=== PATIENT | female | born 1995 | race Caucasian/White ===

== ENCOUNTER 2022-01-08 16:57 | Inpatient (IN) | payer OTHER, SELFPAY ==
[2022-01-08] VITALS (10 sets, daily range): BP systolic 97–137; BP diastolic 66–100; PULSE 67–104; BMI 27.5
--- NOTE | 2022-01-08 16:57 | LDADM ---
This patient, Toñito Herrera, was admitted to Labor/Delivery/Recovery 109 on 01/08/22 at 16:57. Plans for labor, pain management and were discussed with patient. Patient/family oriented to hospital policies and general routines including ID bracelet, bed and alarms, visiting hours, pain management, procedures, bathroom and other care routines, personal items, smoking policy, room service/diet and guest tray routines, infant security routines, and visiting hours. Patient/Family are encouraged to report perceived risks to care and to ask questions if they do not understand what they are told or what they should do. See OBIX for further documentation.
--- OUTSIDE RECORDS SUMMARY | 2022-01-08 17:02 | XMS_ITS | Encounter Summary ---
:1995 Author Reason for Visit OB visit OB [id number] EDC 01/21/2022 LMP 04/16/2021 Assessment and Plan Assessment Note Patient is _34__weeks . Discuss ed plan. 1. Routine care Discussion Note: None recorded.Patient educational handouts: No information available. Plan of Care Reminders Provider Appointments Ob Routine 01/11/2022 9:45AM Lizet donovan CNM ? Ob Routine 01/18/2022 9:30AM Lizet donovan CNM Lab None recorded. ? ? Referral None recorded. ? ? Procedures None recorded. ? ? Surgeries None recorded. ? ? Imaging None recorded. ? ? Medications Name Start Date ? ? ? Unisom (doxylamine) ? Medications Administered None recorded. Vitals Height Weight BMI Blood Pressure 5 ft 8 in 164 lbs 24.9 kg/m2 120/80 mm[Hg] Results Lab Results None recorded. Allergies Code Code System Name Reaction Severity Onset Penicillin Hives Mild to Moderate ? Problems Name Status Onset Date Source ? Active 07/11/2021 ? Procedures Date Name Performed by ? 09/18/2012 Extraction of [place] Tooth Information n ot available Vaccine List None recorded. Social History Tobacco Smoking Status Never Smoker Do you have difficulty walking or climbing stairs? N What type of diet are you following? REGULAR What is the highest grade or level of school you have comple diogenes or [id number] the highest degree you have received? Are you able to walk? YESWOREST
--- OUTSIDE RECORDS SUMMARY | 2022-01-08 17:02 | XMS_ITS | Encounter Summary ---
:1995 Author Reason for Visit OB visit OB [id number] EDC 01/21/2022 LMP 04/16/2021 Assessment and Plan Assessment Note Patient is __37_weeks . Discuss ed plan. 1. Routine care [...] BMI Blood Pressure 5 ft 8 in 165 lbs 25.1 kg/m2 132/88 mm[Hg] Results Lab Results None recorded. Allergies Code Code System Name Reaction Severity Onset Penicillin Hives Mild to Moderate ? Problems Name Status Onset Date Source ? Active 07/11/2021 ? Procedures Date Name Performed by ? 09/18/2012 Extraction of [place] Tooth Information n ot available Vaccine List None recorded. Social History Tobacco Smoking Status Never Smoker Do you have difficulty walking or climbing stairs? N What type of diet are you following? REGULAR What is the highest grade or level of school you have comple diogenes or [id number] the highest degree you have received? Are you able to walk? YESWOREST
--- OUTSIDE RECORDS SUMMARY | 2022-01-08 17:02 | XMS_ITS | Encounter Summary ---
:1995 Author Reason for Visit OB visit Assessment and Plan Assessment Note Patient is __32_weeks . Discuss ed plan. 1. Routine care [...] BMI Blood Pressure 5 ft 8 in 161 lbs 24.5 kg/m2 138/86 mm[Hg] Results Lab Results None recorded. Allergies Code Code System Name Reaction Severity Onset Penicillin Hives Mild to Moderate ? Problems Name Status Onset Date Source ? Active 07/11/2021 ? Procedures Date Name Performed by ? 09/18/2012 Extraction of [place] Tooth Information n ot available Vaccine List None recorded. Social History Tobacco Smoking Status Never Smoker Do you have difficulty walking or climbing stairs? N What type of diet are you following? REGULAR What is the highest grade or level of school you have comple diogenes or [id number] the highest degree you have received? Are you able to walk? YESWOREST Are you able to care for yourself? Y
--- OUTSIDE RECORDS SUMMARY | 2022-01-08 17:02 | XMS_ITS | Encounter Summary ---
:1995 Author Reason for Visit OB visit OB [id number] EDC 01/21/2022 LMP 04/16/2021 Assessment and Plan Assessment Note Patient is _36__weeks . Discuss ed plan. 1. Routine care [...] ft 8 in 164 lbs 24.9 kg/m2 127/88 mm[Hg] Results Lab Results None recorded. Allergies Code Code System Name Reaction Severity Onset Penicillin Hives Mild to Moderate ? Problems Name Status Onset Date Source ? Active 07/11/2021 ? Procedures Date Name Performed by ? 09/18/2012 Extraction of [place] Tooth Information n ot available Vaccine List None recorded. Social History Tobacco Smoking Status Never Smoker Do you have difficulty walking or climbing stairs? N What type of diet are you following? REGULAR What is the highest grade or level of school you have comple diogenes or [id number] the highest degree you have received? Are you able to walk? YESWOREST
--- OUTSIDE RECORDS SUMMARY | 2022-01-08 17:02 | XMS_ITS | Encounter Summary ---
:1995 Author Reason for Visit OB visit OB [id number] EDC 01/21/2022 LMP 04/16/2021 Assessment and Plan Assessment Note Patient is _30__weeks . Discuss ed plan. 1. Routine care [...] BMI Blood Pressure 5 ft 8 in 160 lbs 24.3 kg/m2 127/82 mm[Hg] Results Lab Results None recorded. Allergies Code Code System Name Reaction Severity Onset Penicillin Hives Mild to Moderate ? Problems Name Status Onset Date Source ? Active 07/11/2021 ? Procedures Date Name Performed by ? 09/18/2012 Extraction of [place] Tooth Information n ot available Vaccine List None recorded. Social History Tobacco Smoking Status Never Smoker Do you have difficulty walking or climbing stairs? N What type of diet are you following? REGULAR What is the highest grade or level of school you have comple diogenes or [id number] the highest degree you have received? Are you able to walk? YESWOREST
--- OUTSIDE RECORDS SUMMARY | 2022-01-08 17:02 | XMS_ITS | Encounter Summary ---
:1995 Author Reason for Visit OB visit OB [id number] EDC 01/21/2022 LMP 04/16/2021 Assessment and Plan Assessment Note Patient is ___weeks . Discussed plan. 1. screening Discussion Note: None recorded.Patient educational handouts: No [...] BMI Blood Pressure 5 ft 8 in 158 lbs 24 kg/m2 126/85 mm[Hg] Results Lab Results None recorded. Allergies Code Code System Name Reaction Severity Onset Penicillin Hives Mild to Moderate ? Problems Name Status Onset Date Source ? Active 07/11/2021 ? Procedures Date Name Performed by ? 09/18/2012 Extraction of [place] Tooth Information n ot available Vaccine List None recorded. Social History Tobacco Smoking Status Never Smoker Do you have difficulty walking or climbing stairs? N What type of diet are you following? REGULAR What is the highest grade or level of school you have comple diogenes or [id number] the highest degree you have received? Are you able to walk? YESWOREST
--- OUTSIDE RECORDS SUMMARY | 2022-01-08 17:02 | XMS_ITS ---
:1995 Author Care Team Providers Name Role Phone Lizet Griffin Primary Care Provider Unavailable Allergies Code Code System Name Reaction Severity Status Onset Penicillin Hives Mild to Moderate Active ? Medications Name Status Start Date Stop Date ? ? azithromycin 250 mg tablet Completed ? 09/07 TAKE 2 TABLETS BY MOUTH TODAY, THEN TAKE 1 TABLET DAILY FOR 4 D AYS doxycycline hyclate 100 mg tablet Completed ? 06/15/2021 fluconazole 150 mg tablet Completed ? 05/12 (21) 1 mg-20 mcg tablet Completed ? 06/15/2021 FE 05/12 (28) 1 mg-20 mcg (21)/75 mg (7) Completed 06/15/2021 tablet mupirocin 2 % topical ointment Completed ? 0 06/15/2021 Active ? Not available Unisom (doxylamine) Active ? Not availabl e Problems Name Status Onset Date Source ? Active 07/11/2021 ? Procedures Date Name Performed by ? 09/18/2012 Extraction of [place] Tooth Information n ot available 07/11/2021 US, Obstetric, Nuchal Translucency Reilly nu[address] [place] [address] ([address]) 09/07/2021 US, Obstetric, 2Nd or 3Rd Trimester Esther gaffney [address] [place] [address] ([address]) 09/07/2021 US, Obstetric, Transvaginal Apurva [address] [place] [address] ([address]) Results
--- NOTE | 2022-01-08 17:39 | WPDANESEPP ---
Anes - Eval Pre Procedure Procedure: labor Epidural Date/Time: 01/08/22 17:39 Pre Op Diagnosis: Induction of Labor Patient Data Age: 26 Gender: F Height: 1.65 m Weight: 75 kg Last Vital Signs Pulse 102 H 01/08/22 17:30 BP 133/84 01/08/22 17:30 O2 Del Method Room Air 01/08/22 17:19 Allergies Allergy/AdvReac Type Severity Reaction Status Date / Time Penicillins Allergy Mild Hives Verified 12/23/21 12:38 Home Medications Medication Instructions Recorded Confirmed Type prenat.vits,bouchra,myz-[id number]-ddrpw 1 tablet PO DAILY 12/23/21 01/08/22 History Laboratory Tests 01/08/22 01/08/22 01/08/22 17:14 17:15 17:15 WBC Pending RBC Pending Hgb Pending Hct Pending MCV Pending MCH Pending MCHC Pending RDW Pending Plt Count Pending MPV Pending Immature Gran % (Auto) Pending Neut % (Auto) Pending Lymph % (Auto) Pending [place] % (Auto) Pending Eos % (Auto) Pending Baso % (Auto) Pending Lymph # (Auto) Pending [place] # (Auto) Pending Eos # (Auto) Pending Baso # (Auto) Pending Abs Immat Gran (auto) Pending Absolute Neuts (auto) Pending Absolute Nucleated RBC Pending Nucleated RBC % Pending RPR Pending Hep Bs Antigen Pending Patient hx anesthesia problems: none Family hx anesthesia problems: none Results Review: All pre-operative results and documents have been reviewed as part of the pre-operative evaluation. [facility] Family History Family History Mother Hypertension Cervical cancer Father Hyperthyroidism Social History Social History Smoking status: Never smoker Second hand tobacco smoke exposure: No Substance use: never Spiritual care concerns: No Exam Day of Procedure 01/08/22 17:39 Patient weight: overweight Heart: regular rate and rhythm Lungs: normal air movement Airway: Mallampati scale class II Neurological: alert and oriented
[2022-01-08 17:40] LABS: Basophils Absolute Auto 0.1 K/mm3 (0.0-0.1); Basophils Percent Auto 0.6 % (0.2-1.2); Eosinophils Absolute Auto 0.1 K/mm3 (0-0.3); Eosinophils Percent Auto 1.5 % (0-4.4); Hematocrit 38.3 % (37.0-47.0); Immature Granulocyte Absolute 0.03 K/mm3 (0.00-0.031); Immature Granulocyte Percent A 0.3 % (0-0.5); Lymphocytes Percent Auto 19.9 % (18.3-44.2); Mean Corpuscular HGB Conc 33.9 g/dl (32-36); Mean Corpuscular Hemoglobin 30.2 pg (26-34); Mean Corpuscular Volume 89.1 fl (80-100); Mean Platelet Volume 10.3 fl (7.4-10.4); Monocytes Absolute Auto 0.7 K/mm3 (0.1-0.6); Monocytes Percent Auto 8.1 % (2.6-8.5); Neutrophils Absolute Auto 6.3 K/mm3 (1.3-6.7); Neutrophils Percent Auto 69.6 % (45.5-73.1); Platelet Count Result 312 k/mm3 (150-375); Red Cell Distribution Width 13.1 % (11.5-14.5); White Blood Count 9.1 K/mm3 (4.5-10.0)
[2022-01-08] MEDS: DINOPROSTONE 10 MG VAG INSERT VAGINAL (17:47)
[2022-01-08] MEDS: ceFAZolin 2 GM/D5W 50 ML 2 GM/50 ML BAG IVPB (17:52)
[2022-01-08] MEDS: LACTATED RINGERS 1,000 ML 125 ML IV CONT (17:53)
[2022-01-08 18:23] LABS: Hepatitis B Surface Antigen Negative (Negative)
[2022-01-09] VITALS (166 sets, daily range): BP systolic 83–165; BP diastolic 38–137; PULSE 58–165; RESP 18; TEMP 36.6–37; O2SAT 95–100
[2022-01-09] MEDS: fentaNYL CITRATE INJ (*CRX) 100 MCG/2 ML VIAL 50 MCG IV PUSH ×2 (02:04→02:30)
[2022-01-09] MEDS: fentaNYL CITRATE INJ (*CRX) 100 MCG/2 ML VIAL IV PUSH (03:46)
[2022-01-09 06:39] LABS: Rapid Plasma Reagin Non-Reactive (NonReactive)
[2022-01-09] MEDS: OXYTOCIN 30 UNITS/NS 500 ML 30 UNITS/500 ML BAG 6 UNITS IV CONT (07:26)
--- NOTE | 2022-01-09 07:49 | WPDOBADMIT ---
Obstetrics - Admit Note Admission Note: record reviewed. No pertinent additions to the history and/or any subsequent changes in the physical findings that are not consistent with the expected course of the were found. IOL, IUGR, SVE 1-2/80/-2 AROM large amount of clear odorless fluid Additions to the history and/or subsequent changes in the physical findings follow. None.
[2022-01-09] MEDS: LACTATED RINGERS 1,000 ML 125 ML IV CONT (10:13)
[2022-01-09] MEDS: SODIUM CHLORIDE 0.9% IV 300 ML 600 ML I-UTERINE (14:14)
[2022-01-09] MEDS: ONDANSETRON INJ 4 MG/2 ML VIAL IV PUSH (15:30)
--- NOTE | 2022-01-09 17:17 | PM.OBPRVD ---
OB - Delivery Note Procedure Delivery date: 01/09/22 Procedure: Events: Intrauterine Growth Restriction (IUGR) Induction method: AROM, Per Pitocin Protocol and Per Cervidil Protocol Delivery augmentation: Rupture of Membranes and Pitocin Delivery monitor: External FHT, External Uterine and Internal Uterine Route of delivery: Laceration Description: None Specimen: Yes Quantitative Blood Loss (ml): 100 Anesthesia type: Epidural Disposition: Floor Narrative: mom and baby doing well and skin to skin [place] Baby Date of : 01/09/22 Time of : 17:06 Weeks of gestation at delivery: 39 Infant gender: Male presentation: vertex position: Right Occiput Anterior Placenta delivery description: Spontaneous Cord Vessel Description: 3 Vessels score one minute: 9 score five minutes: 9
[2022-01-09] MEDS: OXYTOCIN 30 UNITS/NS 500 ML 30 UNITS/500 ML BAG 125 UNITS IV CONT (17:42)
--- NOTE | 2022-01-09 19:51 | PC.NURSE ---
Patient transferred to post room #290 via ( w/c ). Support person present. Oriented to unit, room, information board, rooming in, admission packet and security measures. Patient verbalizes understanding.
[2022-01-10 00:34] VITALS: BP 133/84; PULSE 90; RESP 18; TEMP 36.7; O2SAT 98
[2022-01-10 04:10] VITALS: BP 120/76; PULSE 74; RESP 16; TEMP 36.8; O2SAT 99
[2022-01-10 06:28] LABS: Hematocrit 35.7 % (37.0-47.0)
[2022-01-10] MEDS: IBUPROFEN 600 MG TABLET PO ×3 (06:43→21:49)
[2022-01-10 07:50] VITALS: BP 113/72; PULSE 82; RESP 16; TEMP 36.4; O2SAT 99
[2022-01-10] MEDS: MULTIVIT/MIN/PREN/FOL AC/IRON TABLET 1 TAB PO (09:00)
[2022-01-10] MEDS: DOCUSATE SODIUM 100 MG CAPSULE PO ×2 (09:00→16:24)
--- NOTE | 2022-01-10 09:51 | PM.OBPNVD ---
OB - PN: Subj Subjective Date/time seen: 01/10/22 09:51 Patient comments: no complaints, pain well controlled, incisional pain, tolerating diet and flatus present OB - PN: Obj Data Labs CBC & Chem 7: 01/10/22 05:12 Labs: Laboratory Results - last 24 hr 01/10/22 05:12 Hgb 12.0 Hct 35.7 L OB - PN A/P Plan day: 1 Plan: routine care Comments: No problems, routine care Time Spent With Patient Time: Total time spent is greater than 50% in coordination of care (as documented) at patient's floor/unit and/or counseling patient: Exam Const: General: comfortable, no acute distress and alert Resp: Effort & Inspection: normal respiratory effort Auscultation: no crackles, no rales and no rhonchi Cardio: Rate: regular rate Heart sounds: no click, no murmurs and no rubs GI: Inspection: non-distended GI Palp: No Tenderness to palpation present (GI) Auscultation: normal bowel sounds Other: Incision - CDI Extrem: General: normal to inspection, no pedal edema and no calf tenderness
[2022-01-10 12:08] VITALS: BP 116/82; PULSE 78; RESP 16; TEMP 36.6; O2SAT 100
--- NOTE | 2022-01-10 13:15 | WPDANLDPN2 ---
Anes-Prog Note L&D Date/Time: 01/10/22 13:15 Comfortable throughout: labor and delivery Neuraxial method: epidural Epidural/Spinal procedure site: clean & non-tender Neuro status: Neuro function grossly intact. Cardiovascular status: normal Respiratory status: normal Airway patency: baseline Mental status: baseline Post-Op hydration status: normal Vital Signs: Last Vital Signs Temp 97.8 F 01/10/22 12:08 Pulse 78 01/10/22 12:08 Resp 16 01/10/22 12:08 BP 116/82 01/10/22 12:08 Pulse Ox 100 01/10/22 12:08 O2 Del Method Room Air 01/10/22 09:00 Pain score (VAS): 0 I/O: Intake & Output 01/09/22 01/10/22 01/10/22 23:59 07:59 15:59 Intake Total 500 Output Total 51 Balance 449 Post-procedural complaints: none Patient feedback: Patient satisfied with anesthetic care.
--- NOTE | 2022-01-10 16:00 | PC.NURSE ---
[phone] Introductions were made, then consulted with patient to assess needs related to . Mother led the conversation with her?plans to feed?her infant and the?experience so far. Resources provided for inpatient and outpatient services using a resource guide and mom/baby guide. Mother voiced understanding of information and requests assistance. Mother works well with her infant with encouragement and education. Encouraged understanding of the benefits of skin to skin (unwrapping and placing vertically on her chest), responsive feeding and how to watch for early feeding signs, frequency of feeding on demand about every 8-12 times in 24 hours (every 2-3 hours), milk production, hand expression, signs of adequate intake/output and how to record on the feeding sheet. is skin to skin nippling the breast with no efforts to latch at this time. Resources used to facilitate learning were used with the [visual handouts/ tool/mom and baby guide]. Mother voiced understanding of responsive feedings, stimulating with skin to skin, hand expressed colostrum, massage touch, changing positions, talking to to encourage if it has been 2 -3 hours since the start of the last , to call if infant does not latch or there is discomfort with . Reported to the primary RN. [phone] Consulted with mother to see if there were any questions or need of assistance. Mother states it is getting better and she was able to latch and get a few sucks without pain . Mother had just attempted and didn't not request assistance at this time and voiced understanding to call if her infant doesn't wake to breastfeed, discomfort or difficulty latching her .
[2022-01-10 16:10] VITALS: BP 116/83; PULSE 74; RESP 18; TEMP 36.8; O2SAT 100
[2022-01-10] MEDS: ACETAMINOPHEN 325 MG TABLET 650 MG PO (16:24)
[2022-01-10 21:39] VITALS: BP 125/87; PULSE 78; RESP 14; TEMP 36.9; O2SAT 99
--- NOTE | 2022-01-11 06:31 | PM.OBPNVD ---
OB - PN: Subj Subjective Date/time seen: 01/11/22 06:31 s/p vag delivery day 2 OB - PN: Obj Data Labs CBC & Chem 7: 01/10/22 05:12 Labs: Laboratory Results - last 24 hr 01/10/22 05:12 Hgb 12.0 Hct 35.7 L OB - PN A/P Plan day: 2 Plan: routine care and discharge home Time Spent With Patient Time: Total time spent is greater than 50% in coordination of care (as documented) at patient's floor/unit and/or counseling patient: Review of Systems Review of Systems: All systems reviewed & are unremarkable except as noted in HPI and below Exam Const: General: cooperative
--- NOTE | 2022-01-11 06:32 | PM.OBDSVD ---
DS: Admitting Diagnosis Discharge Date 01/11/22 Admitting Diagnosis IOL, IUGR OB - DS: Summary OB Procedures : None OB Procedures Intrapartum: Spontaneous Vag Delivery OB Procedures: : None Time Spent with Patient Time attestation: Total time spent providing and/or coordinating discharge services: DS: Data Data Completed and Pending Pending studies at discharge: Pending at discharge 01/09/22 17:09 Surgical [PTH] Routine Labs on day of discharge: Labs from last 24 hours 01/10/22 05:12 Hgb 12.0 Hct 35.7 L Discharge Plan Discharge Attending physician on discharge: Candy Toro Discharging Clinician: Lizet Griffin Patient Disposition: Home, Self-Care Activity: pelvic rest Diet: regular Patient Instructions: Antibiotic Form Stand Alone Forms: General Discharge Information Follow-up/Referrals: Lizet Griffin CNM [Certified Nurse [employer]phalt Roller Person] - 4 Weeks Discharge Medications: New ibuprofen 600 mg Tablet 600 mg PO Q6H PRN (Reason: Cramping) Qty: 30 0RF Continued #2 Tablet 1 tablet PO DAILY Date of admission: 01/08/22 16:57 Primary Care Provider: UNKNOWN,DOCTOR Admitting Provider: Candy Toro Attending physician on admission: Candy Toro Condition: Stable
[2022-01-11 07:16] VITALS: BP 99/65; PULSE 79; RESP 12; TEMP 36.8; O2SAT 99
[2022-01-11] MEDS: MULTIVIT/MIN/PREN/FOL AC/IRON TABLET 1 TAB PO (09:00)
--- NOTE | 2022-01-11 12:30 | PC.NURSE ---
PT received discharge instructions per protocol and verbalized understanding of such care.
--- NOTE | 2022-01-11 12:56 | PC.NURSE ---
Pt discharged to home ambulatory accompanied by infant and taken to waiting car. Follow up appts confirmed
--- NOTE | 2022-01-11 15:04 | PC.NURSE ---
1151 - Mother led the conversation with her experience and plan to feed her so far and her ability to attempt to independently latch optimally without discomfort using the nipple shield, pumping to stimulate milk production, and supplement if needed. Reviewed good handwashing, cleaning the nipple shield and application. Discussed with mom the nipple shield precautions, possible complications associated with the risks and benefits. Reviewed practicing with a nipple shield, then without and how to protect the milk supply and production. Mom and baby guide referred to as a resource for using a nipple shield, out-patient services, community resources and when to call a provider. Mom voiced understanding of the importance of hand expression, nipple stimulation and initiating a pumping schedule if infant continues to nurse with the shield. was latched with a nipple shield at the left breast in cradle positioning. Nipple shield was removed, mother switched to cross cradle, held breast with the sandwich hold, then effectively latched and breastfed her on the left breast. Mother is feeding appropriately for growth of infant and understands stimulating to eat if needed. Infant has had appropriate feedings in the last 24 hours meets the outcomes for weight, output and jaundice at this time. Mother states she is confident to continue effectively her infant at home or when to call for assistance and denies any additional assistance or education at this time. Reinforced understanding of milk production, transition of milk, signs of adequate intake, prevention/relief of engorgement, responsive after visualizing feeding cues, the different methods of stimulating to breastfeed 2-3 hours after the start of the last feeding, community resources, medication information reviewed per [employer] and when to call a provider using the resource of the mom and baby guide/[facility] website. Mother voiced understanding of the education shared. Reported to the primary RN.
[2022-01-12 10:02] VITALS: BP 124/93; PULSE 83; RESP 20; TEMP 36.7; O2SAT 99
== END 2022-01-11 12:56 | disposition home or self-care (01) | DRG 807 ==
LOC: ANHLDR 01-09 07:32 → ANHOB2 01-09 19:54
PROVIDERS: Advanced Practice Midwife; Admitting Provider Obstetrics & Gynecology; Visit Provider Obstetrics & Gynecology
DX: O36.5930 Maternal care for other known or suspected poor fetal growth, third trimester, not applicable or unspecified (principal); Z37.0 Single live birth; O99.824 Streptococcus B carrier state complicating childbirth; O76 Abnormality in fetal heart rate and rhythm complicating labor and delivery; Z3A.39 39 weeks gestation of pregnancy; Z88.0 Allergy status to penicillin
CPT/HCPCS: 36415; 85014; 85018; 85025; 86592; 86850; 86900; 86901; 87340; 88307; A9270; J0690; J2405; J2590; J2795; J3010; J7030; J7120